=== PATIENT | male | born 1950 | race Caucasian/White ===

== ENCOUNTER 2017-05-05 18:13 | Emergency (ER) | payer MEDICARE ==
--- NOTE | 2017-05-05 18:58 | RAD ---
INDICATION: CVA COMPARISON: None TECHNIQUE: Noncontrast axial source images were acquired from the skull base to the vertex. FINDINGS: Ventricles/sulci: The ventricles and cisterns are normal in size and configuration for age. Brain parenchyma: There is no focal parenchymal finding, evidence of intracranial mass, or intracranial mass effect. Intracranial hemorrhage:None. Extra-axial spaces: There are no abnormal extra axial fluid collections or evidence of extra-axial mass. Calvarium: There is no calvarial fracture or other calvarial abnormality. Scalp: There is no evidence of scalp or extracalvarial soft tissue abnormality. Paranasal sinuses/mastoid: The paranasal sinuses and mastoid air cells are clear. Other: None. IMPRESSION: No acute intracranial findings
[2017-05-05 19:41] LABS: ABS Basophils 0 10^3/ul (0-0.2); ABS Eosinophils 0.1 10^3/ul (0-0.6); ABS Lymphocytes 1.7 10^3/ul (1.0-4.8); ABS Monocytes 0.7 10^3/ul (0-0.8); ABS Neutrophils 4.7 10^3/ul (1.5-7.7); ABS Nucleated RBC 0 10^3/ul; Eosinophil % 1.4 % (0-6); Hematocrit 49 % (42-52); Hemoglobin 16.7 g/dl (14.0-18.0); Mean Corpuscular HGB Conc 34 g/dl (31-36); Mean Corpuscular Hemoglobin 30 pg (27-31); Mean Corpuscular Volume 89 fL (80-94); Mean Platelet Volume 9 um3 (7.4-10.4); Nucleated Red Blood Cells % 0.1; Platelet Count 207 10^3/ul (150-450); Red Blood Count 5.56 10^6/ul (4.0-5.4); Red Cell Distribution Width 13 % (10.5-15); White Blood Count 7.2 10^3/ul (3.5-10.8)
[2017-05-05 19:46] LABS: INR 1.02 (0.77-1.02)
[2017-05-05 19:51] LABS: EGFR Non-African American 81.8 (>60)
[2017-05-05] MEDS: Meclizine TAB* 12.5 MG PO ONE (22:04)
--- NOTE | 2017-05-05 22:24 | ED ---
Nolberto Sood Stephanie, scribed for Flor López MD on 05/05/17 at 2119 . Dizziness - HPI Summary HPI Summary: The pt is a 66 y/o M presenting to the ED with c/o dizziness that began at 08: 00 today. Symptoms include nausea, blurred vision and loss of balance. The pt denies vomiting. The pt states he just didnt feel right. The pt states his PCP Dr. Lee advised him to come to the ED. The pt states the symptoms were worse in the morning. He states that movement causes blurred vision. He states a hx of vertigo. The pt reports being sick 2-3 weeks ago. He reports 2 situations of vertigo in the past. - History Of Current Complaint Chief Complaint: EDNeurologicalDeficit Stated Complaint: DIZZY/NAUSEA Time Seen by Provider: 05/05/17 20:35 Hx Obtained From: Patient Onset/Duration: Still Present Timing: Constant Character: Dizzy Alleviating Factor(s): Nothing Associated Signs And Symptoms: Positive: Nausea, Other: - blurred vision, loss of balance. Negative: Vomiting - Allergies/Home Medications Allergies/Adverse Reactions: Allergies Allergy/AdvReac Type Severity Reaction Status Date / Time MS Penicillins [Penicillins] Allergy See Comment Verified 05/05/17 20:50 PMH/Surg Hx/FS Hx/Imm Hx Sensory History: Denies: Hx Legally Blind EENT History: Denies: Hx Deafness - Cancer History Cancer Type, Location and Year: prostate - Surgical History Surgery Procedure, Year, and Place: hernia surgery x2. prostate surgery. L arm surgery Infectious Disease History: No Infectious Disease History: Denies: History Other Infectious Disease, Traveled Outside the [place] in Last 30 Days - Family History Known Family History: Positive: Cardiac Disease, Other - cancer - Social History Occupation: Employed Full-time Lives: With Family Alcohol Use: None Substance Use Type: Reports: None Smoking Status (MU): Never Smoked Tobacco Review of Systems Positive: Blurred Vision Positive: Nausea. Negative: Vomiting Neurological: Other - dizziness, loss of balance All Other Systems Reviewed And Are Negative: Yes Physical Exam - Summary Physical Exam Summary: VITAL SIGNS: Reviewed. GENERAL: Patient is a well-developed and nourished MALE who is lying comfortable in the stretcher. Patient is not in any acute respiratory distress. HEAD AND FACE: No signs of trauma. No ecchymosis, hematomas or skull depressions. No sinus tenderness. EYES: PERRLA, EOMI intact x 2, No injected conjunctiva, no nystagmus. EARS: Hearing grossly intact. Ear canals and tympanic membranes are within normal limits. MOUTH: Oropharynx within normal limits. NECK: Supple, trachea is midline, no adenopathy, no JVD, no carotid bruit, no c- spine tenderness, neck with full ROM. CHEST: Symmetric, no tenderness at palpation LUNGS: Clear to auscultation bilaterally. No wheezing or crackles. CVS: Regular rate and rhythm, S1 and S2 present, no murmurs or gallops appreciated. ABDOMEN: Soft, non-tender. No signs of distention. No rebound no guarding, and no masses palpated. Bowel sounds are normal. EXTREMITIES: FROM in all major joints, no edema, no cyanosis or clubbing. NEURO: Alert and oriented x 3. No acute neurological deficits. Speech is normal and follows commands. Cranial nerves intact, Pt could walk in ED with steady gait, not off balance. No dysmetria SKIN: Dry and warm Triage Information Reviewed: Yes Vital Signs On Initial Exam: Initial Vitals Temp Pulse Resp BP Pulse Ox 98.1 F 66 16 167/75 98 05/05/17 18:25 05/05/17 18:25 05/05/17 18:25 05/05/17 18:25 05/05/17 18:25 Vital Signs Reviewed: Yes Diagnostics - Vital Signs Vital Signs Temp Pulse Resp BP Pulse Ox 05/05/17 18:25 98.1 F 66 16 167/75 98 - Laboratory Lab Results: Lab Results 05/05/17 05/05/17 05/05/17 Range/Units 19:25 19:25 19:25 WBC 7.2 (3.5-10.8) 10^3/ul RBC 5.56 H (4.0-5.4) 10^6/ul Hgb 16.7 (14.0-18.0) g/dl Hct 49 (42-52) % MCV 89 (80-94) fL MCH 30 (27-31) pg MCHC 34 (31-36) g/dl RDW 13 (10.5-15) % Plt Count 207 (150-450) 10^3/ul MPV 9 (7.4-10.4) um3 Neut % (Auto) 64.8 (38-83) % Lymph % (Auto) 24.0 L (25-47) % [place] % (Auto) 9.3 H (1-9) % Eos % (Auto) 1.4 (0-6) % Baso % (Auto) 0.5 (0-2) % Absolute Neuts (auto) 4.7 (1.5-7.7) 10^3/ul Absolute Lymphs (auto) 1.7 (1.0-4.8) 10^3/ul Absolute Monos (auto) 0.7 (0-0.8) 10^3/ul Absolute Eos (auto) 0.1 (0-0.6) 10^3/ul Absolute Basos (auto) 0 (0-0.2) 10^3/ul Absolute Nucleated RBC 0 10^3/ul Nucleated RBC % 0.1 INR (Anticoag Therapy) 1.02 (0.77-1.02) Sodium 139 (133-145) mmol/L Potassium 3.9 (3.5-5.0) mmol/L Chloride 103 (101-111) mmol/L Carbon Dioxide 30 (22-32) mmol/L Anion Gap 6 (2-11) mmol/L BUN 15 (6-24) mg/dL Creatinine 0.92 (0.67-1.17) mg/dL Est GFR ( Amer) 105.2 (>60) Est GFR (Non-Af Amer) 81.8 (>60) BUN/Creatinine Ratio 16.3 (8-20) Glucose 143 H (70-100) mg/dL Calcium 9.5 (8.6-10.3) mg/dL Total Bilirubin 0.80 (0.2-1.0) mg/dL AST 23 (13-39) U/L ALT 36 (7-52) U/L Alkaline Phosphatase 80 (34-104) U/L Total Protein 6.9 (6.4-8.9) g/dL Albumin 4.5 (3.2-5.2) g/dL Globulin 2.4 (2-4) g/dL Albumin/Globulin Ratio 1.9 (1-3) Result Diagrams: 05/05/17 19:25 05/05/17 19:25 Lab Statement: Any lab studies that have been ordered have been reviewed, and results considered in the medical decision making process. - CT Brain CT Interpretation: No Acute Changes CT Interpretation Completed By: Radiologist - NO ACUTE INTRACRANIAL FINDINGS Dizzy Course/Dx - Course Course Of Treatment: The pt is a 66 y/o M presenting to the ED with c/o dizziness that began at 08:00 today. Symptoms include nausea, blurred vision and loss of balance. The pt will be discharged with meclizine. - Diagnoses Provider Diagnoses: Vertigo Discharge - Discharge Plan Condition: Stable Disposition: HOME Patient Education Materials: Vertigo (ED) Referrals: Steven Lemus MD [Primary Care Provider] - 3 Days Additional Instructions: RETURN TO EMERGENCY DEPARTMENT FOR ANY NEW OR WORSENING SYMPTOMS The documentation as recorded by the Nolberto smith Stephanie accurately reflects the service I personally performed and the decisions made by Rene burnett Abdul, MD.
[2017-05-05 23:13] VITALS: BP 153/81
== END 2017-05-05 22:20 | disposition home or self-care (01) ==
LOC: ED 18:13
DX: R42 Dizziness and giddiness (principal); Z88.0 Allergy status to penicillin
CPT/HCPCS: 36415; 70450; 80053; 85025; 85610; 99283; A9270-GY

== ENCOUNTER 2017-05-31 09:51 | Emergency (ER) | payer MEDICARE ==
[2017-05-31 09:59] VITALS: BP 157/87
[2017-05-31] MEDS ORDERED: Aspirin TAB* 325 MG PO ONE (11:14)
[2017-05-31] MEDS ORDERED: Aspirin Low Dose CHEW TAB* 81 MG PO ONE (11:17)
--- NOTE | 2017-05-31 13:04 | UC ---
Ever Sood Jennifer, scribed for Nicole Vyas MD on 05/31/17 at 1054 . Dizzy HPI HPI Summary: The patient is a 66 year old male who presents with intermittent dizziness. Most recent started yesterday morning, noted when he woke up. Is able to turn head, and lie down to sleep. First episode a couple weeks ago. Seen by PCP and then in ED, rx meclizine, CT brain neg. However, he had another episode that started a couple days ago. He is concerned since he reports that this is not like past episodes of vertigo in 1998 and 2004, where the room was spinning , + nausea, and inability to turn head. He reports that dizziness is most problematic leaning over to pick something up and standing up again. Mr. Rodriguez denies currrent or recent vomiting, new ringing in the ears, syncope or near syncope, appetite changes, headache, hearing problems, sleeping problems, reflux, diarrhea, black stool, changes in urination, numbness, tingling, weakness. He additionally complains that beginning 2-3 days ago, he felt his heart skip a beat and there was pain in his chest. He reports this occurs randomly (about once / week, but unable to quantify further ), lasts about five minutes each time. The patient also adds that his vision has been foggier since two days ago and he has had swelling in his legs for the past few years. - History Of Current Complaint Chief Complaint: UCDizziness Stated Complaint: DIZZINESS Time Seen by Provider: 05/31/17 10:18 Hx Obtained From: Patient Onset/Duration: Sudden Onset, Lasting Weeks - two weeks, Still Present, Worse Since - yesterday Timing: Intermittent Episode Lasting Severity Initially: Mild Severity Currently: None Pain Intensity: 0 Pain Scale Used: 0-10 Numeric Character: Dizzy Aggravating Factor(s): Position Change - Bending down Alleviating Factor(s): Nothing Associated Signs And Symptoms: Positive: Nausea, Chest Pain, Palpitations. Negative: Vomiting, Change In Diet Related History: Similar Episode/Dx as - 1998, 2004 - Allergies/Home Medications Allergies/Adverse Reactions: Allergies Allergy/AdvReac Type Severity Reaction Status Date / Time Penicillins Allergy See Comment Verified 05/31/17 10:00 PMH/Surg Hx/FS Hx/Imm Hx Previously Healthy: Yes - NEG: DM, HTN - Surgical History Surgical History: Yes Surgery Procedure, Year, and Place: hernia surgery x2. prostate surgery. L arm surgery - Family History Known Family History: Positive: Cardiac Disease, Other - cancer - Social History Alcohol Use: Weekly Substance Use Type: None Smoking Status (MU): Never Smoked Tobacco Review of Systems Eyes: Other - "foggy" vision Cardiovascular: Palpitations - Very intermittent, Chest Pain Gastrointestinal: Nausea Musculoskeletal: Other: - Swelling in legs for few years Neurological: Other - Dizziness All Other Systems Reviewed And Are Negative: Yes Physical Exam - Summary Physical Exam Summary: Appearance: Well-Nourished Eye Exam: Normal ENT Exam: Normal Respiratory Exam: Normal, no dyspnea, no tachypnea, normal respiratory rate Chest non-tender, Lungs clear, Normal breath sounds, No respiratory distress, No accessory muscle use Cardiovascular Exam: Normal Cardiovascular: Heart rate regular, good general skin color, good capillary refill Abdominal Exam: Normal Abdomen Description: Nontender, No Organomegaly, Soft Bowel Sounds: Present Musculoskeletal Exam: Normal Musculoskeletal: Strength Intact Neurological Exam: CN 1 - 12 intact, incl + sens alcohol swab. ~No diplopia. Moves all ext's. ~Distal sens LT present x 4 ext's Denies B/B issues. Gait steady, Heel to forward / backward approx 4 ft ok. FtNtF ok bilat. sharpened rhomberg 2 sec max L foot forward, 9 sec max R foot forward. Psychological Exam: Normal: conversing easily and appropriately Skin Exam: Normal: no visible or reported rash Triage Information Reviewed: Yes Vital Signs: Initial Vital Signs Temp 97.7 F 05/31/17 09:55 Pulse 83 05/31/17 09:55 Resp 18 05/31/17 09:55 BP 157/87 05/31/17 09:55 Pulse Ox 99 05/31/17 09:55 Vital Signs Reviewed: Yes Eye Exam: Normal - nystagmus not appreciated ENT: Positive: Pharynx normal, TM dull Neck exam: Normal - + arthritic changes Neck: Positive: Supple, Nontender Respiratory Exam: Normal Respiratory: Positive: Chest non-tender, Lungs clear, Normal breath sounds, No respiratory distress Cardiovascular Exam: Normal - correlates with radial pulse Cardiovascular: Positive: RRR, No Murmur, Pulses Normal, Brisk Capillary Refill Abdominal Exam: Normal - soft nt nd Abdomen Description: Positive: Nontender Musculoskeletal Exam: Normal - gait steady moves x 4 ext's Neurological Exam: Other Psychological Exam: Normal - conversing easily and appropriately Skin Exam: Normal - no visible or reported rash Dizzy Course/Dx - Course Course Of Treatment: EKG SR at 65 bpm. Borderline intraventricular conduction delay. QTC 418 MT 178. No old EKG for comparison. ASA 324mg po x 1 here in [facility]. I reviewed ED notes from Apr 2017 and ancillary reports associated with this visit, as viewable in [facility]. I recommend transfer to ED for further evaluation and tx. Mr. Rodriguez carefully considered this. He agrees to go to the ED, but has some things he has to take care of this afternoon. He will go to the ED afterwards. I called the ED, spoke with Dr. Rossi. Mr. Rodriguez was given the opportunity to ask several insightful questions, to which I answered to the best of my ability. - Differential Dx/Diagnosis Provider Diagnoses: Dizziness. Chest discomfort / pain - Physician Notifications Discussed Patient Care With: José Rossi Time Discussed With Above Provider: 12:08 Instructed by Provider To: Other - The patient was recommended to transfer to ED but denied transfer and left AMA due to work. I notified Dr. Rossi that the patient will go to the ED this afternoon. Discharge - Discharge Plan Condition: Guarded Disposition: HOME Patient Education Materials: Chest Pain (ED), Dizziness (ED) Referrals: Steven Lemus MD [Primary Care Provider] - Additional Instructions: Your blood pressure was elevated during today's visit, 157/87. Please follow up with your primary care provider, at least in 1-2 weeks. I recommend that you go to the Emergency Department. Call 911 if any worse or new problems. Please advise your primary care doctor of your condition as well. Seek medical attention for worse or new problems in the meantime. The documentation as recorded by the Ever smith Jennifer accurately reflects the service I personally performed and the decisions made by me, Nicole Vyas MD.
[2017-06-01] MEDS ORDERED: Aspirin Low Dose CHEW TAB* 81 MG PO SCH (09:00)
== END 2017-05-31 11:28 | disposition home or self-care (01) ==
LOC: UCEAST 09:51
DX: R42 Dizziness and giddiness (principal); R07.89 Other chest pain; R00.2 Palpitations; R11.0 Nausea
CPT/HCPCS: 93005; 99212; A9270-GY; G0463

== ENCOUNTER 2017-05-31 17:35 | Emergency (ER) | payer MEDICARE ==
[2017-05-31 18:17] LABS: ABS Basophils 0 10^3/ul (0-0.2); ABS Eosinophils 0.1 10^3/ul (0-0.6); ABS Lymphocytes 2.8 10^3/ul (1.0-4.8); ABS Monocytes 0.8 10^3/ul (0-0.8); ABS Neutrophils 3.8 10^3/ul (1.5-7.7); ABS Nucleated RBC 0 10^3/ul; Eosinophil % 1.7 % (0-6); Hematocrit 45 % (42-52); Hemoglobin 15.4 g/dl (14.0-18.0); Lymphocyte % 37.3 % (25-47); Mean Corpuscular HGB Conc 34 g/dl (31-36); Mean Corpuscular Hemoglobin 30 pg (27-31); Mean Corpuscular Volume 87 fL (80-94); Mean Platelet Volume 9 um3 (7.4-10.4); Nucleated Red Blood Cells % 0.1; Platelet Count 198 10^3/ul (150-450); Red Blood Count 5.14 10^6/ul (4.0-5.4); Red Cell Distribution Width 13 % (10.5-15); White Blood Count 7.5 10^3/ul (3.5-10.8)
[2017-05-31] MEDS ORDERED: Meclizine TAB* 12.5 MG PO ONE (18:19)
--- NOTE | 2017-05-31 18:25 | RAD ---
INDICATION: Dizziness. COMPARISON: Comparison is made with a prior study from May 05, 2017. TECHNIQUE: Contiguous axial sections of the brain were obtained from the skull base to the vertex without contrast. FINDINGS: The ventricles, cisterns and sulci are enlarged consistent with diffuse atrophy. There is a prominent cisterna magna consistent with normal variation. No significant focal abnormality or mass effect is seen. There is no evidence for hemorrhage. No significant focal osseous abnormality is seen. The visualized portion of the paranasal sinuses and mastoid air cells appear clear. IMPRESSION: NO EVIDENCE FOR ACUTE INTRACRANIAL ABNORMALITY.
--- NOTE | 2017-05-31 18:43 | RAD ---
INDICATION: Dizziness. COMPARISON: Comparison is made with a prior chest x-ray study from December 13, 2005. TECHNIQUE: Dual-energy PA and lateral views of the chest were obtained. FINDINGS: The heart is within normal limits in size. Mediastinal and hilar contours appear within normal limits. There are small nodular densities at both lung bases likely representing nipple shadows. The lungs are otherwise clear. No pleural effusion is seen. IMPRESSION: 1. NO EVIDENCE FOR ACUTE FINDING. 2. SMALL NODULAR DENSITIES AT BOTH LUNG BASES LIKELY REPRESENTING NIPPLE SHADOWS. RECOMMEND A REPEAT PA CHEST FILM WITH NIPPLE MARKERS.
[2017-05-31 19:00] VITALS: BP 158/78
--- NOTE | 2017-06-02 12:30 | ED ---
Adam Sood Angela, scribed for Ian Castelan MD on 05/31/17 at 1802 . Dizziness - HPI Summary HPI Summary: This pt is a 66 y/o male presenting to [facility] referred by [facility] c/o dizziness since yesterday morning. Pt reports he was in the ED a couple of weeks ago and was diagnosed with vertigo, for which he was given Meclizine. He notes his dizziness resolved until yesterday morning. Pt states she woke up with dizziness yesterday morning. He denies room spinning and weakness-type of dizziness. Pt reports "it's hard to describe." His dizziness is aggravated with position change. Pt additionally c/o nausea. Denies vomiting, headache, weakness , numbness, tingling, fever, chills, unsteady gait. He notes he took 1 tablet of meclizine today 1 hour [employer]. - History Of Current Complaint Chief Complaint: EDDizziness Stated Complaint: DIZZY/NAUSEA Time Seen by Provider: 05/31/17 17:53 Hx Obtained From: Patient Onset/Duration: Still Present Timing: Days - 1 Severity Currently: Moderate Character: Dizzy, Unable To Describe Aggravating Factor(s): Position Change Alleviating Factor(s): Nothing Associated Signs And Symptoms: Positive: Nausea. Negative: Vomiting, SOB, Fever , Chills, Inability to Walk, Slurred Speech - Allergies/Home Medications Allergies/Adverse Reactions: Allergies Allergy/AdvReac Type Severity Reaction Status Date / Time Penicillins Allergy See Comment Verified 05/31/17 10:00 PMH/Surg Hx/FS Hx/Imm Hx Endocrine/Hematology History: Denies: Hx Diabetes Cardiovascular History: Denies: Hx Hypertension Sensory History: Denies: Hx Legally Blind, Hx Deafness Opthamlomology History: Denies: Hx Legally Blind - Cancer History Cancer Type, Location and Year: prostate - Surgical History Surgery Procedure, Year, and Place: hernia surgery x2. prostate surgery. L arm surgery Infectious Disease History: No Infectious Disease History: Denies: History Other Infectious Disease, Traveled Outside the [place] in Last 30 Days - Family History Known Family History: Positive: Cardiac Disease, Other - cancer - Social History Alcohol Use: Weekly Substance Use Type: Reports: None Smoking Status (MU): Never Smoked Tobacco Review of Systems Negative: Fever, Chills Eyes: Negative ENT: Negative Cardiovascular: Negative Positive: Nausea. Negative: Vomiting Musculoskeletal: Negative Skin: Negative Neurological: Other - POS: dizziness. NEG: unsteady gait Negative: Headache, Weakness, Paresthesia, Numbness All Other Systems Reviewed And Are Negative: Yes Physical Exam - Summary Physical Exam Summary: VITAL SIGNS: Reviewed. GENERAL: Patient is a well-developed and nourished male who is lying comfortable in the stretcher. Patient is not in any acute respiratory distress. HEAD AND FACE: No signs of trauma. No ecchymosis, hematomas or skull depressions. No sinus tenderness. EYES: PERRLA, EOMI x 2, No injected conjunctiva, no nystagmus. No photophobia. EARS: Hearing grossly intact. Ear canals and tympanic membranes are within normal limits. MOUTH: Oropharynx within normal limits. NECK: Supple, trachea is midline, no adenopathy, no JVD, no carotid bruit, no c- spine tenderness, neck with full ROM. No meningeal signs, no Kernig's or brudzinskis signs. CHEST: Symmetric, no tenderness at palpation LUNGS: Clear to auscultation bilaterally. No wheezing or crackles. CVS: Regular rate and rhythm, S1 and S2 present, no murmurs or gallops appreciated. ABDOMEN: Soft, non-tender. No signs of distention. No rebound no guarding, and no masses palpated. Bowel sounds are normal. EXTREMITIES: FROM in all major joints, no edema, no cyanosis or clubbing. NEURO: Alert and oriented x 3. No acute neurological deficits. Speech is normal and follows commands. SKIN: Dry and warm GCS: 15 Triage Information Reviewed: Yes Vital Signs On Initial Exam: Initial Vitals Temp Pulse Resp BP Pulse Ox 98.3 F 67 18 172/80 98 05/31/17 17:38 05/31/17 17:38 05/31/17 17:38 05/31/17 17:38 05/31/17 17:38 Vital Signs Reviewed: Yes - Erika Coma Scale Best Eye Response: 4 - Spontaneous Best Motor Response: 6 - Obeys Commands Best Verbal Response: 5 - Oriented Coma Scale Total: 15 Diagnostics - Vital Signs Vital Signs Temp Pulse Resp BP Pulse Ox 05/31/17 17:38 98.3 F 67 18 172/80 98 - Laboratory Result Diagrams: 05/31/17 18:06 05/31/17 18:06 Lab Statement: Any lab studies that have been ordered have been reviewed, and results considered in the medical decision making process. - Radiology Chest XR Xray Interpretation: No Acute Changes - IMPRESSION: 1. No evidence for acute finding. 2. Small nodular densities at both lung bases likely representing nipple shadows. Recommend a repeat PA chest film with nipple markers. Dr. Castelan has reviewed this radiology report. Radiology Interpretation Completed By: Radiologist - CT Brain CT CT Interpretation: No Acute Changes - IMPRESSION: No evidence for acute intracranial abnormality. Dr. Castelan has reviewed this radiology report. CT Interpretation Completed By: Radiologist - EKG 18:08 Cardiac Rate: NL EKG Rhythm: Sinus Rhythm - at 65 bpm EKG Interpretation: No ST elevation. Normal axis. Re-Evaluation - Re-Evaluation First Eval Re-Evaluation Time: 18:42 Comment: I reviewed the lab results, brain CT, and chest XR with the pt. Dizzy Course/Dx - Course Assessment/Plan: This pt is a 66 y/o male presenting to [id number] referred by [facility] c/o dizziness since yesterday morning. Pt reports he was in the ED a couple of weeks ago and was diagnosed with vertigo, for which he was given Meclizine. He notes his dizziness resolved until yesterday morning. Pt states she woke up with dizziness yesterday morning. He denies room spinning and weakness-type of dizziness. Pt reports "it's hard to describe." His dizziness is aggravated with position change. Pt additionally c/o nausea. Denies vomiting , headache, weakness, numbness, tingling, fever, chills, unsteady gait. Test results without any significant abnormalities. Brain CT: No evidence for acute intracranial abnormality. Chest XR: 1. No evidence for acute finding. 2. Small nodular densities at both lung bases likely representing nipple shadows. Recommend a repeat PA chest film with nipple markers. In the ED course, the pt was given meclizine. Pt will be discharged to home with follow up from his PCP. He was given a prescription for meclizine. He is instructed to return to the ED for any worsening or new symptoms. Pt agrees and understands. Pt is hemodynamically stable, alert and oriented x3. - Diagnoses Provider Diagnoses: Vertigo Discharge - Discharge Plan Condition: Stable Disposition: HOME Prescriptions: Meclizine TAB* [Antivert 12.5 TAB*] 25 mg PO TID PRN #30 tab PRN Reason: Vertigo Patient Education Materials: Vertigo (ED) Referrals: Steven Lemus MD [Primary Care Provider] - 3 Days Additional Instructions: Please follow up with your primary care provider. RETURN TO THE ED FOR ANY WORSENING SYMPTOMS. The documentation as recorded by the Adam smith Angela accurately reflects the service I personally performed and the decisions made by Flip burnett Walter, MD.
== END 2017-05-31 18:59 | disposition home or self-care (01) ==
LOC: ED 17:35
DX: R42 Dizziness and giddiness (principal); R11.0 Nausea
CPT/HCPCS: 36415; 70450; 71046; 80053; 82550; 83605; 83735; 83880; 84443; 84484; 85025; 86140; 93005; 99282; A9270-GY